=== PATIENT | female | born 2000 | race Native Hawaiian/Other Pacific Islander ===

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

== ENCOUNTER 2021-09-27 16:41 | Emergency (ER) | payer OTHER ==
[~2021-09-27] VITALS: Ht 167.6 cm; Wt 59.0 kg
[2021-09-27 16:50] VITALS: BP 114/60; TEMP 98.6
[2021-09-27 17:20] LABS: PLATELET COUNT 142 K/uL (152-353)
[2021-09-27 17:27] LABS: POTASSIUM 3.8 mmol/L (3.6-5.2)
== END 2021-09-27 18:47 | disposition home or self-care (01) ==
LOC: ED 16:41
PROVIDERS: Family Medicine
DX: Z3A.01 Less than 8 weeks gestation of pregnancy (principal); R10.84 Generalized abdominal pain; R00.2 Palpitations
CPT/HCPCS: 80053; 81000; 85027; 93005; 99283

== ENCOUNTER 2022-02-07 20:35 | Emergency (ER) | payer OTHER ==
[~2022-02-07] VITALS: Ht 167.6 cm; Wt 63.5 kg
[2022-02-07 20:48] VITALS: BP 106/51; TEMP 97.6
== END 2022-02-07 21:41 | disposition left against medical advice (07) ==
LOC: ED 20:35
DX: R10.13 Epigastric pain (principal); Z3A.01 Less than 8 weeks gestation of pregnancy
CPT/HCPCS: 80307; 81000; 87086; 87088; 99283